=== PATIENT | male | born 1960 | race African-American/Black ===

== ENCOUNTER 2018-10-30 13:17 | Emergency (ER) | payer OTHER ==
[2018-10-30] MEDS ORDERED: NA CHLORIDE 0.9% 1,000 ML ONE ×2 (13:38→14:24)
[2018-10-30] MEDS ORDERED: MORPHINE 4 MG/ML SYR ONE (13:38)
[2018-10-30] MEDS ORDERED: ONDANSETRON 4 MG/2 ML VIAL ONE (13:38)
[2018-10-30] MEDS ORDERED: FENTANYL CITR 100 MCG/2 ML ONE (14:24)
[2018-10-30 14:41] LABS: Absolute Lymphocytes (CBC) 3.5 K/uL (0.7-4.9); Basophils % 0.7 % (0-1.3); Lymphocytes % 30.3 % (15.3-44.8); RBC Red Blood Cell Count 5.11 M/uL (4.33-5.43)
[2018-10-30 14:59] LABS: Protime INR 0.99
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
[2018-10-30 15:19] LABS: ALT/SGPT 40 U/L (12-78); AST/SGOT 32 U/L (15-37); Albumin 4.1 g/dL (3.4-5.0); Alkaline Phosphatase 68 U/L (45-117); BUN Blood Urea Nitrogen 15 mg/dL (7-18); Bicarbonate 23 mmol/L (21-32); Bilirubin Direct 0.2 mg/dL (0-0.2); Bilirubin Total 0.6 mg/dL (0.2-1.0); Glucose Level 172 mg/dL (74-106); Magnesium 1.6 mg/dL (1.8-2.4); NT PRO-BNP 10 pg/mL (<125); Potassium 3.4 mmol/L (3.5-5.1); Protein, Total 7.4 g/dL (6.4-8.2); Sodium Level 143 mmol/L (136-145); Troponin (Emerg Dept Use Only) < 0.02 ng/mL (0.0-0.045)
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
[2018-10-30] MEDS ORDERED: MAGNESIUM SULFATE 1 gm IVPB 1 GM/100 ML BAG IV ONE (16:32)
[2018-10-30] MEDS ORDERED: TETANUS & DIPHTHERIA TOX,ADULT 0.5 ML VIAL ONE (16:32)
[2018-10-30] MEDS ORDERED: LIDOCAINE 1% MPF 30 ML VIAL ONE (17:26)
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
--- NOTE | 2018-10-31 08:54 | EKG ---
Test Date: 2018-10-30 Test Time: 13:54:59 Materials Associate: MEASUREMENT RESULTS: Intervals: Rate: 87 WV: 176 QRSD: 80 QT: 334 QTc: 401 [place]: P: 58 WV: 176 QRS: 48 T: 38 INTERPRETIVE STATEMENTS: Normal sinus rhythm Nonspecific ST abnormality Abnormal ECG No previous ECG available for comparison Electronically Signed On 10-31-18 08:54:08 CDT by Isak Pacheco
== END 2018-10-30 18:58 | disposition home or self-care (01) ==
LOC: ER 13:17
PROC: 0JQ10ZZ Repair Face Subcutaneous Tissue and Fascia, Open Approach (ICD-10-PCS; principal; 2018-10-30)
DX: S01.91XA Laceration without foreign body of unspecified part of head, initial encounter (principal); S01.81XA Laceration without foreign body of other part of head, initial encounter; V89.2XXA Person injured in unspecified motor-vehicle accident, traffic, initial encounter; Y93.89 Activity, other specified; Y92.410 Unspecified street and highway as the place of occurrence of the external cause
CPT/HCPCS: 96365; 96361; 93005; 85025; 80048; 36415; 86900; 83735; 86850; 85610; 86901; 80076; 84484; 83880; 70450; 72125; 71260; 74177; 71045; 72170; 73060; 90471; 90714; 96375; 99285; 12013; Q9967; J3010; J3475; J7030 ×2; J2405

== ENCOUNTER 2023-08-31 02:49 | Inpatient (IN) | payer SELFPAY ==
[2023-08-31] MEDS ORDERED: MORPHINE 4 MG/ML SYR ONE (03:35)
[2023-08-31] MEDS ORDERED: KETOROLAC 30 MG/ML INJ ONE (03:35)
[2023-08-31] MEDS ORDERED: ONDANSETRON 4 MG/2 ML VIAL ONE (03:35)
[2023-08-31] MEDS ORDERED: NA CHLORIDE 0.9% 1,000 ML ONE ×2 (03:35→05:48)
[2023-08-31 03:57] LABS: Absolute Basophils 0.1 K/uL (0-0.5); Absolute Eosinophils 0.1 K/uL (0-0.5); Absolute Monocytes 0.8 K/uL (0.1-1.3); Absolute Neutrophil 5.5 K/uL (1.8-8.0); Basophils % 0.7 % (0-1.3); Eosinophils % 0.9 % (0-4.4); Hematocrit 40.5 % (39.6-49.0); Hemoglobin 13.6 g/dL (13.6-17.9); Lymphocytes % 23.8 % (15.3-44.8); MCH 29.3 pg (27.0-35.0); MCHC 33.6 g/dL (32.0-36.0); MCV 87.1 fL (80-100); MPV 7.3 fL (7.6-11.3); Monocytes % 9.5 % (3.3-12.3); Neutrophils % 65.1 % (41.7-73.7); Nucleated Red Blood Cells % 0.2 % (0-0); Platelets 310 thou/uL (152-406); RBC Red Blood Cell Count 4.65 M/uL (4.33-5.43); Red Cell Distribution Width 13.8 % (12.1-15.2)
[2023-08-31 04:28] LABS: Albumin 3.5 g/dL (3.4-5.0); Albumin/Globulin Ratio 0.8 (1.1-1.8); Anion Gap 8.2 mEq/L (5.0-15.0); Bilirubin Total 0.9 mg/dL (0.2-1.0); Globulin 4.6 g/dL (2.3-3.5); Potassium 4.2 mEq/L (3.5-5.1); Protein, Total 8.1 g/dL (6.4-8.2)
--- NOTE | 2023-08-31 05:25 | EDPHYS ---
Physician Documentation [facility] Name: Po Godwin Age: 62 yrs Sex: Male : 1960 Arrival Date: 08/31/2023 Time: 02:49 Bed 5 Private MD: ED Physician Martin Bone HPI: 08/30 03:51 This 62 yrs old Black Male presents to ER via Ambulatory with complaints of Abdominal rod Pain, Low Back Pain. 03:51 The patient presents with pain that is acute, with no known mechanism of injury. The rod symptoms are located in the left low back and left mid back. The pain does not radiate. The problem was sustained from unknown cause. Modifying factors: The patient symptoms are alleviated by nothing, the patient symptoms are aggravated by coughing. Historical: - Allergies: 03:22 No Known Allergies; lg3 - Home Meds: 03:22 Metformin Oral [Active]; lg3 - PMHx: 03:22 Diabetes - NIDDM; lg3 - PSHx: 03:22 None; lg3 - Immunization history:: Adult Immunizations up to date. - Infectious Disease History:: Denies. - Social history:: Smoking status: Patient denies any tobacco usage or history of. Patient/guardian denies using alcohol, street drugs. - Family history:: not pertinent. ROS: 03:52 Constitutional: Negative for fever, chills, and weight loss, Eyes: Negative for injury, rod pain, redness, and discharge, ENT: Negative for injury, pain, and discharge, Neck: Negative for injury, pain, and swelling, Cardiovascular: Negative for chest pain, palpitations, and edema, Respiratory: Negative for shortness of breath, cough, wheezing, and pleuritic chest pain, Back: Negative for injury and pain, : Negative for injury, bleeding, discharge, and swelling, MS/Extremity: Negative for injury and deformity, Skin: Negative for injury, rash, and discoloration, Neuro: Negative for headache, weakness, numbness, tingling, and seizure, Psych: Negative for depression, anxiety, suicide ideation, homicidal ideation, and hallucinations, Allergy/Immunology: Negative for hives, rash, and allergies, Endocrine: Negative for neck swelling, polydipsia, polyuria, polyphagia, and marked weight changes, Hematologic/Lymphatic: Negative for swollen nodes, abnormal bleeding, and unusual bruising, 03:52 Abdomen/GI: Positive for abdominal pain, nausea and vomiting, of the anterior aspect of left lateral abdomen, posterior aspect of left lateral abdomen, left upper quadrant and left lower quadrant, Exam: 03:52 Constitutional: This is a well developed, well nourished patient who is awake, alert, rod and in no acute distress. Head/Face: Normocephalic, atraumatic. Eyes: Pupils equal round and reactive to light, extra-ocular motions intact. Lids and lashes normal. Conjunctiva and sclera are non-icteric and not injected. Cornea within normal limits. Periorbital areas with no swelling, redness, or edema. ENT: Nares patent. No nasal discharge, no septal abnormalities noted. Tympanic membranes are normal and external auditory canals are clear. Oropharynx with no redness, swelling, or masses, exudates, or evidence of obstruction, uvula midline. Mucous membranes moist. Neck: Trachea midline, no thyromegaly or masses palpated, and no cervical lymphadenopathy. Supple, full range of motion without nuchal rigidity, or vertebral point tenderness. No Meningismus. Chest/axilla: Normal chest wall appearance and motion. Nontender with no deformity. No lesions are appreciated. Cardiovascular: Regular rate and rhythm with a normal S1 and S2. No gallops, murmurs, or rubs. Normal PMI, no JVD. No pulse deficits. Respiratory: Lungs have equal breath sounds bilaterally, clear to auscultation and percussion. No rales, rhonchi or wheezes noted. No increased work of breathing, no retractions or nasal flaring. Back: No spinal tenderness. No costovertebral tenderness. Full range of motion. Male : Normal genitalia with no discharge or lesions. Skin: Warm, dry with normal turgor. Normal color with no rashes, no lesions, and no evidence of cellulitis. MS/ Extremity: Pulses equal, no cyanosis. Neurovascular intact. Full, normal range of motion. Neuro: Awake and alert, GCS 15, oriented to person, place, time, and situation. Cranial nerves II-XII grossly intact. Motor strength 5/5 in all extremities. Sensory grossly intact. Cerebellar exam normal. Normal gait. Psych: Awake, alert, with orientation to person, place and time. Behavior, mood, and affect are within normal limits. 03:52 Abdomen/GI: Inspection: abdomen appears normal, Bowel sounds: active, Palpation: mild abdominal tenderness, moderate abdominal tenderness, in the left upper quadrant and left lower quadrant, Liver: no appreciated palpable abnormalities, Hernia: not appreciated, Vital Signs: 03:20 BP 139 / 83; Pulse 116; Resp 17 S; Temp 98.6(O); Pulse Ox 100% on R/A; Weight 136.08 kg lg3 (R); Height 6 ft. 0 in. (R); 04:58 BP 124 / 69; Pulse 52; Pulse Ox 100% on R/A; tm6 07:43 BP 119 / 76; Pulse 53; Resp 18; Pulse Ox 100% on R/A; ld1 03:20 Body Mass Index 40.69 (136.08 kg, 182.88 cm) lg3 MDM: 02:56 Patient medically screened. rod 03:54 Differential diagnosis: Herniated disc UTI, bowel obstruction, cholecystitis, rod Cholelithiasis, diverticulitis, gastritis, gastroesophageal reflux disease, GI Bleed, Mesenteric ischemia or infarction, non-specific abd pain, pancreatitis, Peptic Ulcer Disease, Perf. Duodenal Ulcer, Perf. Gastric Ulcer, Pyelonephritis, Ureterolithiasis, urinary tract infection. Data reviewed: vital signs, nurses notes, lab test result(s), radiologic studies, CT scan. Consideration of Admission/Observation Escalation of care including admission/observation considered. I considered the following discharge prescriptions or medication management in the emergency department Medications were administered in the Emergency Department. See MAR. Independent interpretation of the following test(s) in the Emergency Department CT Scan: My interpretation is ct c/a/p negative. Test considered but Not performed: EKG: no ekg. Historians other than the Patient: Spouse/Significant Other: well informed. Care significantly affected by the following chronic conditions: Diabetes, Obesity. Counseling: I had a detailed discussion with the patient and/or guardian regarding the historical points, exam findings, and any diagnostic results supporting the discharge/admit diagnosis, lab results, radiology results. 08/30 02:57 Order name: CBC with Diff; Complete Time: 04:39 rod 08/30 02:57 Order name: CMP; Complete Time: 04:39 [facility] 08/30 02:57 Order name: Lipase; Complete Time: 04:39 [facility] 08/30 02:57 Order name: Urinalysis w/ reflexes; Complete Time: 06:11 [facility] 08/30 06:06 Order name: Urinalysis w/ reflexes [facility] 08/30 06:06 Order name: CBC with Automated Diff [facility] 08/30 06:06 Order name: CBC with Automated Diff [facility] 08/30 06:06 Order name: Comprehensive Metabolic Panel [facility] 08/30 06:06 Order name: Comprehensive Metabolic Panel [facility] 08/30 04:40 Order name: CT Chest Abdomen Pelvis W/O Contrast [facility] 08/30 06:07 Order name: CONS Physician Consult [facility] 08/30 02:57 Order name: IV Saline Lock; Complete Time: 03:24 [facility] 08/30 02:57 Order name: Labs collected and sent; Complete Time: 03:24 [facility] Administered Medications: 03:40 Drug: NS 0.9% IV 1000 ml IV at 1 bolus Per protocol; 1000 mL bolus Route: IV; Rate: 1 pc2 bolus; Site: right antecubital; 06:23 Follow up: Response: No adverse reaction; IV Status: Completed infusion; IV Intake: tm6 1000ml 03:41 Drug: Ondansetron IVP 4 mg IVP once; over 2 minutes Route: IVP; Site: right antecubital;pc2 03:42 Drug: TORadol - Ketorolac IVP 15 mg IVP once Route: IVP; Site: right antecubital; pc2 03:43 Drug: morphine IVP or IV 4 mg IVP once over 4 mins Route: IVP; Infused Over: 4 mins; pc2 Site: right antecubital; 06:23 Drug: NS 0.9% IV 1000 ml IV at 1 bolus Per protocol; 1000 mL bolus Route: IV; Rate: 1 tm6 bolus; Site: right antecubital; 07:44 Follow up: IV Status: Completed infusion iw 06:23 Drug: Rocephin IV 1 grams IV at per protocol once; Given slow IV push per pharmacy tm6 instructions Route: IV; Rate: per protocol; Site: right antecubital; 07:44 Follow up: IV Status: Completed infusion iw 06:23 Drug: Flomax PO 0.4 mg PO once Route: PO; tm6 Disposition Summary: 08/31/23 05:24 Hospitalization Ordered Notes: Hospitalization Status: Inpatient Admission rod Provider: Jeison Benedict cha Location: Telemetry/MedSurg (Inpatient) rod Condition: Stable rod Problem: new rod Symptoms: have improved rod Bed/Room Type: Standard [facility] Room Assignment: 206(08/31/23 06:53) [facility] Diagnosis - Hydronephrosis with renal and ureteral calculous obstruction rod - Acute kidney failure, unspecified - ON CHRONIC rod - Type 2 diabetes mellitus with hyperglycemia rod Forms: - Medication Reconciliation Form rod - SBAR form rod - Leadership Thank You Letter rod Signatures: Dispatcher [employer] EDMS Martin Bone MD MD cha Able, Lacie RN RN lg3 Kristyn Azul [facility] David North RN RN tm6 Sandi marmolejo, RN RN pc2 Yolanda Davila RN iw Corrections: (The following items were deleted from the chart) 02:58 02:57 CBC+H.LAB.BRZ ordered. EDMS EDMS 02:58 02:57 COMPREHENSIVE METABOLIC PANEL+C.LAB.BRZ ordered. EDMS EDMS 02:58 02:57 LIPASE+C.LAB.BRZ ordered. EDMS EDMS 02:58 02:57 Urinalysis+U.LAB.BRZ ordered. EDMS EDMS 04:01 02:57 Abdomen Pelvis W Con+CT.RAD.BRZ ordered. EDMS EDMS 04:50 03:51 Chest For PE Angio+CT.RAD.BRZ ordered. EDMS EDMS 04:50 03:51 Abdomen Pelvis W Con+CT.RAD.BRZ ordered. EDMS EDMS 06:53 05:24 rod kmf
--- NOTE | 2023-08-31 05:25 | ER ---
Nurse's Notes [facility] Name: Po Godwin Age: 62 yrs Sex: Male : 1960 Arrival Date: 08/31/2023 Time: 02:49 Bed 5 Private MD: Diagnosis: Hydronephrosis with renal and ureteral calculous obstruction;Acute kidney failure, unspecified-ON CHRONIC;Type 2 diabetes mellitus with hyperglycemia Presentation: 08/30 03:20 Chief complaint: Patient states: left sided abdominal pain radiating to back X1 week lg3 and worsening. Coronavirus screen: Client denies travel out of the [place] in the last 14 days. At this time, the client does not indicate any symptoms associated with coronavirus-19. Ebola Screen: No symptoms or risks identified at this time. Initial Sepsis Screen: Does the patient meet any 2 criteria? No. Patient's initial sepsis screen is negative. Does the patient have a suspected source of infection? No. Patient's initial sepsis screen is negative. Risk Assessment: Do you want to hurt yourself or someone else? Patient reports no desire to harm self or others. Onset of symptoms is unknown. 03:20 Method Of Arrival: Ambulatory lg3 03:20 Acuity: DANIEL 3 lg3 Triage Assessment: 03:22 General: Appears in no apparent distress. uncomfortable, Behavior is calm, cooperative. lg3 Pain: Complains of pain in left upper quadrant Pain radiates to back. EENT: No deficits noted. No signs and/or symptoms were reported regarding the EENT system. Neuro: No deficits noted. Turpin Agitation-Sedation Scale (RASS): 0 - Alert and Calm Level of Consciousness is awake, alert, obeys commands, Oriented to person, place, time, situation. Cardiovascular: No deficits noted. Denies chest pain, shortness of breath, Capillary refill < 3 seconds Clubbing of nail beds is absent JVD is absent Patient's skin is warm and dry. Respiratory: No deficits noted. Airway is patent Respiratory effort is even, unlabored, Respiratory pattern is regular, symmetrical. GI: Abdomen is round non-distended, obese, Reports upper abdominal pain, nausea. : No deficits noted. No signs and/or symptoms were reported regarding the genitourinary system. Derm: No deficits noted. No signs and/or symptoms reported regarding the dermatologic system. Skin is intact, is healthy with good turgor, Skin is dry, Skin is normal, Skin temperature is warm. Musculoskeletal: No deficits noted. No signs and/or symptoms reported regarding the musculoskeletal system. Circulation, motion, and sensation intact. Range of motion: intact in all extremities. Historical: - Allergies: 03:22 No Known Allergies; lg3 - Home Meds: 03:22 Metformin Oral [Active]; lg3 - PMHx: 03:22 Diabetes - NIDDM; lg3 - PSHx: 03:22 None; lg3 - Immunization history:: Adult Immunizations up to date. - Infectious Disease History:: Denies. - Social history:: Smoking status: Patient denies any tobacco usage or history of. Patient/guardian denies using alcohol, street drugs. - Family history:: not pertinent. Screenin:58 [facility] ED Fall Risk Assessment (Adult) History of falling in the last 3 months, pc2 including since admission No falls in past 3 months (0 pts). Abuse screen: Denies threats or abuse. Denies injuries from another. Nutritional screening: No deficits noted. Tuberculosis screening: No symptoms or risk factors identified. Assessment: 03:38 General: Appears in no apparent distress. uncomfortable, well groomed, Behavior is pc2 cooperative, appropriate for age, anxious. Pain: Complains of pain in abdomen and left upper quadrant Pain radiates to back Quality of pain is described as dull, Pain began 2-3 days ago. Neuro: Level of Consciousness is awake, alert, obeys commands, Oriented to person, place, time, situation, Appropriate for age Moves all extremities. Cardiovascular: Patient's skin is warm and dry. Respiratory: Airway is patent Respiratory effort is even, unlabored, Respiratory pattern is regular, symmetrical. GI: Abdomen is non-distended, Bowel sounds present X 4 quads. Abd is soft X 4 quads Reports nausea, vomiting, since [place] after purchasing some "bad Boudin". : No signs and/or symptoms were reported regarding the genitourinary system. EENT: No signs and/or symptoms were reported regarding the EENT system. Musculoskeletal: No signs and/or symptoms reported regarding the musculoskeletal system. 04:59 Reassessment: Patient appears in no apparent distress at this time. tm6 Vital Signs: 03:20 BP 139 / 83; Pulse 116; Resp 17 S; Temp 98.6(O); Pulse Ox 100% on R/A; Weight 136.08 kg lg3 (R); Height 6 ft. 0 in. (R); 04:58 BP 124 / 69; Pulse 52; Pulse Ox 100% on R/A; tm6 07:43 BP 119 / 76; Pulse 53; Resp 18; Pulse Ox 100% on R/A; ld1 03:20 Body Mass Index 40.69 (136.08 kg, 182.88 cm) lg3 ED Course: 02:52 Patient arrived in ED. jj6 02:56 Martin Bone MD is Attending Physician. rod 03:22 Triage completed. lg3 03:22 Arm band placed on right wrist. lg3 03:24 Inserted saline lock: 20 gauge in right antecubital area, using aseptic technique. lg3 Blood collected. 03:24 CBC with Diff Sent. lg3 03:24 CMP Sent. lg3 03:24 Lipase Sent. lg3 03:47 Sandi marmolejo, RN is Primary Nurse. pc2 03:58 Patient has correct armband on for positive identification. Bed in low position. Call pc2 light in reach. Side rails up X2. Provided Education on: POC and timeframe. 04:58 CT Chest Abdomen Pelvis W/O Contrast In Process Unspecified. EDMS 05:23 Jeison Benedict MD is Hospitalizing Provider. rod 07:43 No provider procedures requiring assistance completed. Patient admitted, IV remains in ld1 place. Administered Medications: 03:40 Drug: NS 0.9% IV 1000 ml IV at 1 bolus Per protocol; 1000 mL bolus Route: IV; Rate: 1 pc2 bolus; Site: right antecubital; 06:23 Follow up: Response: No adverse reaction; IV Status: Completed infusion; IV Intake: tm6 1000ml 03:41 Drug: Ondansetron IVP 4 mg IVP once; over 2 minutes Route: IVP; Site: right antecubital;pc2 03:42 Drug: TORadol - Ketorolac IVP 15 mg IVP once Route: IVP; Site: right antecubital; pc2 03:43 Drug: morphine IVP or IV 4 mg IVP once over 4 mins Route: IVP; Infused Over: 4 mins; pc2 Site: right antecubital; 06:23 Drug: NS 0.9% IV 1000 ml IV at 1 bolus Per protocol; 1000 mL bolus Route: IV; Rate: 1 tm6 bolus; Site: right antecubital; 07:44 Follow up: IV Status: Completed infusion iw 06:23 Drug: Rocephin IV 1 grams IV at per protocol once; Given slow IV push per pharmacy tm6 instructions Route: IV; Rate: per protocol; Site: right antecubital; 07:44 Follow up: IV Status: Completed infusion iw 06:23 Drug: Flomax PO 0.4 mg PO once Route: PO; tm6 Medication: 03:59 VIS not applicable for this client. pc2 Intake: 06:23 IV: 1000ml; Total: 1000ml. tm6 Outcome: 05:24 Decision to Hospitalize by Provider. rdo 07:43 Admitted to Med/surg accompanied by tech, via wheelchair, iw 07:43 Condition: good 07:43 Discharge instructions given to patient, family, Instructed on the need for admit, Demonstrated understanding of instructions, 07:45 Patient left the ED. iw Signatures: Dispatcher [employer] EDMS Martin Bone MD MD cha Williams, Irene, RN RN iw Andreina Milan RN RN lg3 Kimberlyn Hassan RN RN ld1 Camila Cortes Tawney RN RN tm6 Sandi marmolejo, RN RN pc2
[2023-08-31 05:28] LABS: Specific Gravity 1.027 (1.005-1.030); Sqamous Epithelial <5 /HPF (None Seen); Urine Bacteria None Seen /HPF (<20); Urine Bilirubin NEGATIVE (Negative); Urine Blood Negative (Negative); Urine Clarity Clear (Clear); Urine Color Yellow (Yellow); Urine Culture Reflex Order NOT NEEDED; Urine Glucose NEGATIVE (Negative); Urine Ketones NEGATIVE (Negative); Urine Microscopic Reflex YN ORDER UMIC; Urine Mucus Slight /HPF (None Seen); Urine Nitrite NEGATIVE (Negative); Urine Protein TRACE (Negative); Urine RBC <5 /HPF (None Seen); Urine Urobilinogen Normal (Normal); Urine WBC <5 /HPF (<5); Urine pH 6.5 (5.0-7.0)
[2023-08-31] MEDS ORDERED: CEFTRIAXONE 1000 MG/VIAL ONE (05:47)
[2023-08-31] MEDS ORDERED: TAMSULOSIN 0.4 MG SR CAP ONE (05:48)
[2023-08-31] MEDS ORDERED: ONDANSETRON 4 MG/2 ML VIAL IV PRN (06:02)
[2023-08-31] MEDS ORDERED: MORPHINE 4 MG/ML SYR IV PRN (06:04)
[2023-08-31 08:02] VITALS: O2SAT 100
[2023-08-31] MEDS: ENOXAPARIN 40 MG/0.4 ML SQ SCH (08:42)
[2023-08-31] MEDS: NA CHLORIDE 0.9% 1,000 ML IV SCH (08:42)
[2023-08-31 08:55] VITALS: BMI 39.0
--- NOTE | 2023-08-31 10:33 | RAD REPORT ---
EXAM DESCRIPTION: CT Chest, Abdomen and Pelvis Without Intravenous Contrast CLINICAL HISTORY: The patient is 62 years old and is Male; Abdominal distention;Chest pain TECHNIQUE: Axial computed tomography images of the chest, abdomen and pelvis without intravenous con trast. Sagittal and coronal reformatted images were created and reviewed. This CT exam was perfor med using one or more of the following dose reduction techniques: automated exposure control, adjus tment of the mA and/or kV according to patient size, and/or use of iterative reconstruction technique . COMPARISON: No relevant prior studies available. FINDINGS: CHEST: Lungs: Unremarkable. No mass. No consolidation. Pleural space: Unremarkable. No significant effusion. No pneumothorax. Heart: Unremarkable. No cardiomegaly. No significant pericardial effusion. No significant c oronary artery calcifications. ABDOMEN: Liver: Unremarkable. Gallbladder and bile ducts: Unremarkable. No calcified stones. No ductal dilation. Pancreas: Unremarkable. No ductal dilation. Spleen: Unremarkable. No splenomegaly. Adrenals: Unremarkable. No mass. Kidneys and ureters: 6 mm stone in the upper left ureter. Mild left hydroureteronephrosis and per inephric/periureteral stranding. Stomach and bowel: Scattered colonic diverticula. No obstruction. No mucosal thickening. PELVIS: Appendix: The appendix is normal. Bladder: Unremarkable. No stones. Reproductive: Unremarkable as visualized. CHEST, ABDOMEN and PELVIS: Intraperitoneal space: Unremarkable. No significant fluid collection. No free air. Bones/joints: 5 mm of anterolisthesis of L3 on L4 with bilateral pars defects. No acute fracture. No dislocation. Soft tissues: Unremarkable. Vasculature: Unremarkable. No aortic aneurysm. Lymph nodes: Unremarkable. No enlarged lymph nodes. IMPRESSION: 6 mm stone in the upper left ureter. Mild left hydroureteronephrosis and perinephric/per iureteral stranding. Electronically signed by: Po Glass MD 08/31/2023 06:31 AM CDT 8 Due to temporary technical issues with the PACS/Fluency reporting system, reports are being signed by the in house radiologist without review as a courtesy to ensure prompt reporting. The interpreting r adiologist is fully responsible for the content of the report.
--- NOTE | 2023-08-31 17:24 | P.HP ---
Certification for Inpatient Patient admitted to: Inpatient With expected LOS: >2 Midnights Practitioner: I am a practitioner with admitting privileges, knowledge of patient current condition, hospital course, and medical plan of care. Services: Services provided to patient in accordance with Admission requirements found in Title 42 Section 412.3 of the Code of Federal Regulations Patient History Date of Service: 08/31/23 Reason for admission: Back pain History of Present Illness: 62-year-old gentleman with a history of diabetes presented to the emergency department with a complaint of left-sided abdominal pain of onset 1 week ago, which became progressively worse and more frequent. Patient described colicky abdominal pain radiating to the back, no known relieving or aggravating factors. He denies any fever or chills. He denies any dysuria or diarrhea or constipation or nausea or vomiting. Patient was evaluated in the emergency department. CT abdomen and pelvis done report 6 mm left ureteral stone with associated mild left hydronephrosis. UA shows no evidence of UTI. Blood work showed elevated creatinine up to 2.14, last serum creatinine in 2019 was 1.17. Patient was hospitalized for further management. Allergies No Known Drug Allergies Allergy (Verified 08/31/23 16:37) Unknown Home Medications: Metformin HCl [Glucophage*] 500 mg PO DAILY 08/31/23 - Past Medical/Surgical History Has patient received pneumonia vaccine in the past: Yes Diabetic: Yes -: Type 2 diabetes -: None - Family History Family History: Reviewed- Non-Contributory - Social History Smoking Status: Never smoker Alcohol use: No CD- Drugs: No Caffeine use: Yes Place of Residence: Home Review of Systems Other: Except as documented, all other systems reviewed and negative. Physical Examination - Vital Signs Temperature: 98.4 F Blood Pressure: 117/67 Pulse: 51 Respirations: 15 Pulse Ox (%): 99 - Physical Exam General: Alert, In no apparent distress, Oriented x3 HEENT: Atraumatic, Normocephalic, PERRLA, Mucous membr. moist/pink, Sclerae nonicteric Neck: Supple, JVD not distended Respiratory: Clear to auscultation bilaterally, Normal air movement Cardiovascular: No edema, Regular rate/rhythm, Normal S1 S2 Capillary refill: <2 Seconds Gastrointestinal: Normal bowel sounds, Soft and benign, Non-distended, No tenderness Musculoskeletal: No swelling, No tenderness Integumentary: No rashes, No cyanosis Neurological: Normal speech, Normal strength at 5/5 x4 extr, Cranial nerves 3-12 intact Lymphatics: No axilla or inguinal lymphadenopathy - Studies Laboratory Data (last 24 hrs) 08/31/23 08/31/23 03:32 03:32 WBC 8.40 Hgb 13.6 Hct 40.5 Plt Count 310 Sodium 139 Potassium 4.2 BUN 15 Creatinine 2.14 H Glucose 125 H Total Bilirubin 0.9 AST 11 L ALT 35 Alkaline Phosphatase 68 Lipase 22 Assessment and Plan - Problems (Diagnosis) (1) Ureteral calculus, left Current Visit: Yes Status: Acute (2) Hydronephrosis, left Current Visit: Yes Status: Acute (3) Type II diabetes mellitus Current Visit: Yes Status: Acute (4) Acute kidney injury Current Visit: Yes Status: Acute - Plan Left ureteral calculus. Left hydronephrosis EVARISTO Newly diagnosed ureteric stone. Patient admitted to the medical floor IV hydration Analgesics as needed Started tamsulosin Antispasmodics as needed Urology consulted-Dr. Caba informed who will evaluate patient for possible intervention tomorrow. Serum creatinine is elevated, unknown recent baseline. Monitor renal function. DM type II Patient with blood sugar readings within range. Hold metformin Insulin sliding scale for hyperglycemia. DVT prophylaxis: Heparin SQ - Advance Directives Does patient have a Living Will: No Does patient have a Durable POA for Healthcare: No
[2023-08-31] MEDS: HEPARIN 5000 UNIT/ML 1 ML VIAL SQ SCH (18:02)
[2023-09-01 03:52] LABS: Absolute Basophils 0.1 K/uL (0-0.5); Absolute Eosinophils 0.1 K/uL (0-0.5); Absolute Lymphocytes (CBC) 1.9 K/uL (0.7-4.9); Absolute Monocytes 0.6 K/uL (0.1-1.3); Absolute Neutrophil 4.1 K/uL (1.8-8.0); Basophils % 1.3 % (0-1.3); Eosinophils % 2.1 % (0-4.4); Hematocrit 33.6 % (39.6-49.0); Hemoglobin 11.2 g/dL (13.6-17.9); Lymphocytes % 27.7 % (15.3-44.8); MCH 29.3 pg (27.0-35.0); MCHC 33.4 g/dL (32.0-36.0); MCV 87.6 fL (80-100); MPV 7.5 fL (7.6-11.3); Monocytes % 8.9 % (3.3-12.3); Platelets 280 thou/uL (152-406); RBC Red Blood Cell Count 3.83 M/uL (4.33-5.43)
[2023-09-01 04:16] LABS: ALT/SGPT 22 U/L (16-61); Albumin 2.8 g/dL (3.4-5.0); Albumin/Globulin Ratio 0.8 (1.1-1.8); Alkaline Phosphatase 54 U/L (45-117); Anion Gap 5.6 mEq/L (5.0-15.0); BUN Blood Urea Nitrogen 20 mg/dL (7-18); Bicarbonate 30 mEq/L (21-32); Bilirubin Total 0.4 mg/dL (0.2-1.0); Globulin 3.7 g/dL (2.3-3.5); Glomerular Filtration Rate 36 ml/min (=/>90); Glucose Level 123 mg/dL (74-106); Potassium 4.6 mEq/L (3.5-5.1); Protein, Total 6.5 g/dL (6.4-8.2); Sodium Level 141 mEq/L (136-145)
[2023-09-01 04:17] LABS: AST/SGOT < 10 U/L (15-37)
[2023-09-01 06:02] LABS: Specific Gravity 1.016 (1.005-1.030); Sqamous Epithelial None Seen /HPF (None Seen); Urine Bacteria None Seen /HPF (<20); Urine Bilirubin NEGATIVE (Negative); Urine Blood Negative (Negative); Urine Clarity Clear (Clear); Urine Color Light-Yellow (Yellow); Urine Culture Reflex Order NOT NEEDED; Urine Glucose NEGATIVE (Negative); Urine Ketones NEGATIVE (Negative); Urine Microscopic Reflex YN ORDER UMIC; Urine Mucus Slight /HPF (None Seen); Urine Nitrite NEGATIVE (Negative); Urine Protein NEGATIVE (Negative); Urine RBC None Seen /HPF (None Seen); Urine Urobilinogen Normal (Normal); Urine WBC None Seen /HPF (<5); Urine pH 6.5 (5.0-7.0)
--- NOTE | 2023-09-01 09:49 | P.PN ---
Date of Service: 09/01/23 Subjective: Denies any pains today. Left-sided pain resolved yesterday evening. Able to urinate with some relief overnight. No pain when urinating afebrile ROS: 10 point ROS as noted above, otherwise negative Physical Exam: GEN: Alert, oriented, NAD HEENT: Normal conjunctiva, sclera anicteric, CV: Regular rate and rhythm, no edema Pulm: Nonlabored respirations on room air, clear bilaterally ABD: soft, no tenderness, nondistended Neuro: Normal speech, normal affect Problem List: Left ureteral calculus with mild left-sided hydronephrosis EVARISTO NIDDM2 Left ureteral calculus with mild left-sided hydronephrosis Reports worsening left-sided colicky abdominal pain that radiates to back for ~1 week. No fever/chills/dysuria CT chest/abdomen/pelvis (08/30): 6mm left upper ureter stone with mild left hydroureteronephrosis and perinephric/periureteral stranding Urology, Dr. Caba consulted - to eval for possible intervention today NPO for now until evaluated by Urology Urinalysis unremarkable Pain control strain urine EVARISTO continue to monitor renal function continue IV fluids NIDDM2 accu-checks, SSI confirm home meds hold metformin for now VTE: Hold heparin given possible surgery Code: Full Dispo: Home Pending urology recs / possible intervention
[2023-09-01] MEDS: ACETAMINOPHEN 325 MG TABLET PO PRN (09:57)
[2023-09-01] MEDS ORDERED: LIDOCAINE 1% MPF 5 ML VIAL ONE (12:44)
[2023-09-01] MEDS ORDERED: MIDAZOLAM HCL 2 MG/2 ML INJ ONE (12:44)
[2023-09-01] MEDS ORDERED: propofoL 200 MG/20 ML VIAL IV ONE (12:44)
[2023-09-01] MEDS ORDERED: FENTANYL CITR 100 MCG/2 ML ONE ×2 (12:44→13:40)
[2023-09-01] MEDS: CEFAZOLIN SODIUM 2 GM/VIAL ONE (13:15)
--- NOTE | 2023-09-01 13:24 | P.CNS ---
Date of Consult: 09/01/23 Reason for Consult: Left ureterolithiasis Requesting Physician: Abhi Caba Chief Complaint: Back pain History of Present Illness: 62-year-old gentleman with DM 2 presented via the emergency department with left-sided upper quadrant abdominal pain that started about a week prior. The pain progressively worsened, and on Thursday, he had an episode of nausea and vomiting, which he associated with having eaten some boudin. He denied any fevers, chills, dysuria or gross hematuria otherwise. He was admitted and has been managed on ceftriaxone and IV fluids. No known drug allergies Past medical history: As above Past surgical history: None Family history: He thinks his father may have had prostate cancer Social history: Remote history of smoking less than 1 year over 30 years ago, about 1/4 pack/week Examination: Patient well-appearing and in no acute distress Alert, awake, oriented x 3 No dyspnea or sign of respiratory distress Pulse 2+ radial and regular Lying in hospital stretcher comfortable 09/01/2023 WBC 6.9, hemoglobin 11.2, platelets 280, creatinine 2.07 with EGFR 36 (up from baseline of 1.2 in 2019), BUN 20 08/31/2023 UA micro negative nitrite/leukocyte esterase, <5 RBCs/WBCs per hpf 08/31/2023 CT chest abdomen and pelvis without contrast (my review of the imaging): 6 mm left proximal ureteral calculus with mild left hydronephrosis. Radiologist review: Perinephric and periureteral stranding Assessment and recommendation: 62-year-old gentleman with DM 2 and possible family history of prostate cancer in his father, first-time stone former with EVARISTO associated with 6 mm left proximal ureterolithiasis, left renal colic and left hydronephrosis. -I counseled the patient and his , who is a nurse at this hospital, that the kidney stone is causing acute kidney injury which can result in ATN, which I e xplained was the potential for essentially of portions of the kidney. I explained the need to relieve the obstruction to restore baseline kidney function. I also explained the potential for ureteral stricture disease associated with stone passage events and the importance of increasing the volume of fluid intake to decrease future risk of stone formation. -At minimum, I explained we would perform cystoscopy with left retrograde pyelography and stent placement to relieve the obstruction. I explained about 5% chance risk of need for percutaneous nephrostomy tube placement if the stone is densely impacted. We also discussed the potential for stent discomfort in detail. -I also suggested that since we had availability of the laser at this time, if no signs of infection upon endoscopy, and if no significant ureteral spasm preventing access into his upper ureter, we would go ahead and attempt ureteroscopy with laser lithotripsy. I explained the risks of that to include urethral stricture, infection, bleeding, ureteral injury/avulsion, and ureteral stricture as described above. -I explained that the stent was a foreign body that must be removed to prevent complications of encrustation and infection. -Given his family history of prostate cancer, he would benefit from prostate cancer screening including a SRI, and his PSA has likely been obtained by his PCP, Dr. Lewis Allergies No Known Drug Allergies Allergy (Verified 08/31/23 16:37) Unknown Home medications list reviewed: Yes Home Medications: Metformin HCl [Glucophage*] 500 mg PO DAILY 08/31/23 - Past Medical/Surgical History Diabetic: Yes -: Type 2 diabetes -: None - Social History Alcohol use: No CD- Drugs: No Caffeine use: Yes Place of Residence: Home Physical Examination Temp Pulse Resp BP Pulse Ox 98.0 F 54 20 121/67 100 09/01/23 12:00 09/01/23 12:00 09/01/23 12:00 09/01/23 12:00 09/01/23 12:00 - Problems (1) Renal colic on left side Current Visit: Yes Status: Acute (2) Acute kidney injury Current Visit: Yes Status: Acute (3) Hydronephrosis, left Current Visit: Yes Status: Acute (4) Ureteral calculus, left Current Visit: Yes Status: Acute Critical Care: No Time Spent Managing Pts care (In Minutes): 30
[2023-09-01] MEDS ORDERED: EPHEDRINE SULF 50 MG/ML VIAL ONE (13:38)
--- NOTE | 2023-09-01 14:10 | P.OP ---
Date of Service: 09/01/23 Preoperative diagnoses: Left renal colic Left ureterolithiasis Left hydronephrosis Acute kidney injury Postoperative diagnoses: Left renal colic Left ureterolithiasis Left hydronephrosis Acute kidney injury Principal procedures: Cystoscopy Left retrograde pyelography Left semirigid ureteroscopy Left 6 x 28 cm JJ ureteral stent placement Indication for procedures: 62-year-old gentleman with DM 2 and possible family history of prostate cancer in his father, first-time stone former with EVARISTO associated with 6 mm left proximal ureterolithiasis, left renal colic and left hydronephrosis. Procedure note: The patient was consented in the preoperative holding area before being transferred to the operative suite where general anesthesia was induced. He was given Ancef 2 g IV antimicrobial prophylaxis, and pneumoboots were provided for DVT prophylaxis. He was placed in the lithotomy position, padded and secured to the table appropriately. His genitalia was prepped with Hibiclens and he was draped in standard fashion. The case was begun using a 22 Burkinan rigid cystoscope to traverse the urethra and into the bladder with relative ease. The bladder was decompressed of fluid and urine and surveyed in its entirety. No papillary mucosal lesions, foreign bodies or stones were noted throughout. The ureteral orifices were orthotopic in location, and I cannulated the left ureteral orifice using the tip of a 5 Burkinan ureteral access catheter. Left retrograde pyelography: Using a 70: 30 mixture of Omnipaque and saline, contrast was injected via the lumen of the 5 Burkinan ureteral access catheter and did propagate up the distal into the mid ureter where it reached a point of transition around a radiopaque calculus visible there before entering a more dilated segment of mid and proximal ureter and ultimately into a mildly hydronephrotic renal pelvis. I thus passed a sensor wire via the 5 Burkinan ureteral access catheter beyond the point of obstruction successfully into the upper pole calyx of the left kidney. I then utilized a dual-lumen catheter to pass a second wire, Bentson guidewire, into the renal pelvis successfully. I followed this, using an 8/10 dilator to dilate the ureteral orifice and distal ureter before ultimately performing semirigid ureteroscopy passed via direct visualization into the ureteral orifice and up the distal into the mid ureter. Once I passed over the iliac vessels, significant ureteral spasm was encountered. I utilized a Bentson guidewire via the ureteroscope to attempt to navigate over the wire and continue to progress up the ureter with a slight degree of success, ultimately getting the ureteroscope into the mid proximal ureter, but at this point, there was so much spasm that further attempts to advance the ureteroscope required too much pressure and around the risk of injury. As a result, I retracted the semirigid ureteroscope surveying the ureter on the way out, and no injury was noted. I thus remove the ureteroscope and backloaded the cystoscope over the indwelling Sensor safety wire. I then passed a 6 Burkinan by 28 cm double-J ureteral stent over that wire and successfully coiled it within the upper pole calyx of the left kidney with an additional coil formed cystoscopically in his bladder. I then decompressed the patient's bladder of fluid and urine and remove the cystoscope. He was then taken out of the lithotomy position, awakened from general anesthesia, transferred to a stretcher, and then transferred to the recovery room in good condition. Complications: None Discharge disposition: He should follow-up in the urology clinic to discuss the next step in management required -left-sided ureteroscopy with laser lithotripsy and stent exchange. This may be scheduled accordingly, and the patient should see me in preoperative evaluation in the office to discuss the procedure in detail. Findings and Operative Technique
--- NOTE | 2023-09-01 14:12 | RAD REPORT ---
EXAM DESCRIPTION: RAD - Urethrocystogrphy Retrograde - 09/01/2023 2:01 pm CLINICAL HISTORY: CYSTO COMPARISON: Pelvis dated 10/30/2018 FINDINGS: Total fluoro time: 0.1 minutes
[2023-09-02 03:33] LABS: Absolute Basophils 0.1 K/uL (0-0.5); Absolute Eosinophils 0.2 K/uL (0-0.5); Absolute Lymphocytes (CBC) 2.1 K/uL (0.7-4.9); Absolute Monocytes 0.4 K/uL (0.1-1.3); Absolute Neutrophil 2.9 K/uL (1.8-8.0); Basophils % 1.2 % (0-1.3); Hematocrit 34.3 % (39.6-49.0); Hemoglobin 11.4 g/dL (13.6-17.9); MCH 29.2 pg (27.0-35.0); MCHC 33.3 g/dL (32.0-36.0); MCV 87.7 fL (80-100); MPV 7.8 fL (7.6-11.3); Monocytes % 7.4 % (3.3-12.3); Neutrophils % 51.4 % (41.7-73.7); Platelets 280 thou/uL (152-406); RBC Red Blood Cell Count 3.91 M/uL (4.33-5.43); Red Cell Distribution Width 13.8 % (12.1-15.2)
[2023-09-02 04:37] LABS: Band Neutrophils 2 % (0-1); Blood Morphology Comment NOT SEEN (NOT SEEN); Differential Total Cells Count 100; Eosinophils 6 % (0-3); Lymphocytes 30 % (15-42); Monocytes 6 % (0-10); Platelet Estimate ADEQ; Reactive Lymphocytes 2 %; Segmented Neutrophils 54 % (40-80)
--- NOTE | 2023-09-02 08:47 | P.DS ---
Admission Date: 08/31/23 Discharge Date: 09/02/23 Disposition: ROUTINE DISCHARGE Discharge Condition: GOOD Reason for Admission: Back pain Consultations: Urology - Dr. Caba Brief History of Present Illness: 62yo M, PMH: NIDDM2 Patient presented to the emergency department with a complaint of left-sided abdominal pain of onset 1 week ago, which became progressively worse and more frequent. Patient described colicky abdominal pain radiating to the back, no known relieving or aggravating factors. He denies any fever or chills. He denies any dysuria or diarrhea or constipation or nausea or vomiting. Patient was evaluated in the emergency department. CT abdomen and pelvis done report 6 mm left ureteral stone with associated mild left hydronephrosis. UA shows no evidence of UTI. Blood work showed elevated creatinine up to 2.14, last serum creatinine in 2019 was 1.17. Patient was hospitalized for further management. Hospital Course: Problem List: Left ureteral calculus, s/p cystoscopy with left retrograde pyelography and left ureteral stent placement (08/31) EVARISTO, improved NIDDM2 Physician discharge instructions: Patient presented to the ED with left sided abdominal pain and was found to have a 6mm left upper ureteral calculus, seen on CT imaging. Patient was evaluated by Dr. Caba, Urology, and was taken to OR for cystoscopy with left retrograde pyelography and had left ureteral stent placed on 08/31. Patient is to follow up with Dr. Caba as outpatient at urology clinic within the next few weeks for further management as discussed below. Discussed with Dr. Caba who recommended starting flomax to assist with bladder spasms. Instructions Per Dr. Caba You have a left ureteral stent that has been placed. Please note: This is a foreign body, which must be removed within 6 months maximum to prevent complications like it being encrusted with stone material or the source of chronic infection. Please ensure to arrange follow-up with me, Dr. Caba, in my office; so that we might discuss the next steps in management of your left ureteral stone, which is still present in your system. Should you have significant bothersome symptoms associated with the stent, urinary frequency/urgency or significant pain with voiding, please notify me, and I will consider a prescription for oxybutynin/Ditropan XL, which should help with those symptoms. Side effects of the oxybutynin/Ditropan includes dry mouth, dry eyes, and constipation. Notify me if you develop any fever (temperature greater than 100.4 Fahrenheit), intractable nausea or vomiting, increasing pain not controlled by pain medications, or other unusual signs or symptoms. It is common to see some blood in the urine following your procedure. It will be light pink/cranberry colored initially, and then it will become dark or tea colored, when the blood oxidized is in the urine, before it finally clears up. It is only a concern if you note bright red and thick/nontranslucent (not see-through) blood in the urine that appears like tomato juice. Notify me if you have any difficulty urinating, or if you feel the need to push or strain to urinate, as this may be a problem. You may purchase [id number] Azo (Pyridium) if you have burning with urination. Please note, it will turn your urine bright orange. All the best WBR Medications: Flomax 0.4 mg at bedtime Tylenol #3 15 pills as needed for breakthrough pain If not needing tylenol #3, you may take plain over the counter Tylenol (up to 1000 mg every 6 hours maximum) and alternate this every 4 hours with Motrin/ibuprofen (up to 800 mg every 8 hours maximum) for your pain. Please take note and keep the total 24-hour daily dose of Tylenol/acetaminophen less than 4000 mg / 4 g from all sources. Follow up: PCP 3-[address] Caba within 2-4 weeks Please call to schedule / confirm appointments Please contact Dr. Caba office to arrange follow-up @ [phone]. Physical Exam: GEN: Alert, oriented, NAD HEENT: Normal conjunctiva, sclera anicteric, CV: Regular rate and rhythm, no edema Pulm: Nonlabored respirations on room air, clear bilaterally ABD: soft, no tenderness, nondistended Neuro: Normal speech, normal affect Vital Signs/Physical Exam: Temp Pulse Resp BP Pulse Ox 97.7 F 51 16 117/71 99 09/02/23 08:00 09/02/23 08:00 09/02/23 08:00 09/02/23 08:00 09/02/23 08:00 Laboratory Data at Discharge: WBC 5.70 thou/uL (4.3-10.9) 09/02/23 03:10 Hgb 11.4 g/dL (13.6-17.9) L 09/02/23 03:10 Hct 34.3 % (39.6-49.0) L 09/02/23 03:10 Plt Count 280 thou/uL (152-406) 09/02/23 03:10 Sodium 141 mEq/L (136-145) 09/02/23 03:10 Potassium 4.0 mEq/L (3.5-5.1) D 09/02/23 03:10 BUN 22 mg/dL (7-18) H 09/02/23 03:10 Creatinine 1.53 mg/dL (0.70-1.30) H 09/02/23 03:10 Glucose 131 mg/dL (74-106) H 09/02/23 03:10 Magnesium 2.0 mg/dL (1.6-2.4) 09/02/23 03:10 Total Bilirubin 0.4 mg/dL (0.2-1.0) 09/01/23 03:19 AST < 10 U/L (15-37) L 09/01/23 03:19 ALT 22 U/L (16-61) 09/01/23 03:19 Alkaline Phosphatase 54 U/L (45-117) D 09/01/23 03:19 Lipase 22 U/L (13-75) 08/31/23 03:32 Home Medications: Metformin HCl [Glucophage*] 500 mg PO DAILY 08/31/23 Codeine/APAP [Tylenol W/Codeine #3 tab] 1 tab PO Q8HP PRN #15 tab 09/02/23 Tamsulosin [Flomax] 0.4 mg PO BEDTIME 21 Days #21 cap 09/02/23 New Medications: Codeine/APAP [Tylenol W/Codeine #3 tab] 1 tab PO Q8HP PRN #15 tab PRN Reason: Pain Tamsulosin [Flomax] 0.4 mg PO BEDTIME 21 Days #21 cap Physician Discharge Instructions: Physician discharge instructions: Patient presented to the ED with left sided abdominal pain and was found to have a 6mm left upper ureteral calculus, seen on CT imaging. Patient was evaluated by Dr. Caba, Urology, and was taken to OR for cystoscopy with left retrograde pyelography and had left ureteral stent placed on 08/31. Patient is to follow up with Dr. Caba as outpatient at urology clinic within the next few weeks for further management as discussed below. Discussed with Dr. Caba who recommended starting flomax to assist with bladder spasms. Instructions Per Dr. Caba You have a left ureteral stent that has been placed. Please note: This is a foreign body, which must be removed within 6 months maximum to prevent complications like it being encrusted with stone material or the source of chronic infection. Please ensure to arrange follow-up with me, Dr. Caba, in my office; so that we might discuss the next steps in management of your left ureteral stone, which is still present in your system. Should you have significant bothersome symptoms associated with the stent, urinary frequency/urgency or significant pain with voiding, please notify me, and I will consider a prescription for oxybutynin/Ditropan XL, which should help with those symptoms. Side effects of the oxybutynin/Ditropan includes dry mouth, dry eyes, and constipation. Notify me if you develop any fever (temperature greater than 100.4 Fahrenheit), intractable nausea or vomiting, increasing pain not controlled by pain medications, or other unusual signs or symptoms. It is common to see some blood in the urine following your procedure. It will be light pink/cranberry colored initially, and then it will become dark or tea colored, when the blood oxidized is in the urine, before it finally clears up. It is only a concern if you note bright red and thick/nontranslucent (not see-through) blood in the urine that appears like tomato juice. Notify me if you have any difficulty urinating, or if you feel the need to push or strain to urinate, as this may be a problem. You may purchase [id number] Azo (Pyridium) if you have burning with urination. Please note, it will turn your urine bright orange. All the best WBR Medications: Flomax 0.4 mg at bedtime Tylenol #3 15 pills as needed for breakthrough pain If not needing tylenol #3, you may take plain over the counter Tylenol (up to 1000 mg every 6 hours maximum) and alternate this every 4 hours with Motrin/ibuprofen (up to 800 mg every 8 hours maximum) for your pain. Please take note and keep the total 24-hour daily dose of Tylenol/acetaminophen less than 4000 mg / 4 g from all sources. Follow up: PCP 3-[address] Caba within 2-4 weeks Please call to schedule / confirm appointments Please contact Dr. Caba office to arrange follow-up @ [phone]. Diet: Low sodium Activity: Ad mateo Followup: Divya Taylor DO, DO [Primary Care Provider] - Abhi Caba [ACTIVE - CAN ADMIT] - Time spent managing pt's care (in minutes): 45
[2023-09-02 08:48] VITALS: BP 117/71; TEMP 97.7
== END 2023-09-02 10:09 | disposition home or self-care (01) | DRG 661 ==
LOC: ER 02:49 → ERHOLD 06:02 → 2ND 07:38
PROVIDERS: ADMIT Family Medicine; ATTEND Hospitalist
PROC: BT1F1ZZ Fluoroscopy of Left Kidney, Ureter and Bladder using Low Osmolar Contrast (ICD-10-PCS; 2023-09-01)
PROC: 0T778DZ Dilation of Left Ureter with Intraluminal Device, Via Natural or Artificial Opening Endoscopic (ICD-10-PCS; principal; 2023-09-01 13:15)
DX: N13.2 Hydronephrosis with renal and ureteral calculous obstruction (principal); N17.9 Acute kidney failure, unspecified; E11.65 Type 2 diabetes mellitus with hyperglycemia; Z79.84 Long term (current) use of oral hypoglycemic drugs
CPT/HCPCS: 36415; 51610; 71250; 74176; 74450; 80048; 80053; 81001; 82947; 83690; 83735; 85025; 96361; 96365; 96375; 99285; J0696; J1644; J1650; J2001; J2250; J2405; J2704; J3010; J7030

== ENCOUNTER 2024-02-16 06:10 | Day surgery (SDC) | payer BC, SELFPAY ==
[2024-02-10 11:38] LABS: Absolute Basophils 0.1 K/uL (0-0.5); Absolute Eosinophils 0.2 K/uL (0-0.5); Absolute Monocytes 0.4 K/uL (0.1-1.3); Absolute Neutrophil 2.9 K/uL (1.8-8.0); Eosinophils % 3.3 % (0-4.4); Hematocrit 38.8 % (39.6-49.0); Hemoglobin 12.5 g/dL (13.6-17.9); MCH 28.9 pg (27.0-35.0); MCHC 32.3 g/dL (32.0-36.0); MCV 89.4 fL (80-100); MPV 8.2 fL (7.6-11.3); Monocytes % 7.8 % (3.3-12.3); Neutrophils % 51.9 % (41.7-73.7); Platelets 223 thou/uL (152-406); RBC Red Blood Cell Count 4.34 M/uL (4.33-5.43); Red Cell Distribution Width 14.2 % (12.1-15.2)
[2024-02-10 11:44] LABS: PT Prothrombin Time 11.2 SECONDS (9.4-12.5)
[2024-02-10 11:51] LABS: Anion Gap 10.1 mEq/L (5.0-15.0); Potassium 3.1 mEq/L (3.5-5.1)
--- NOTE | 2024-02-10 13:01 | RAD REPORT ---
EXAMINATION: TWO VIEW CHEST XR CLINICAL INDICATION: Male, 63 years old. BR MAIN Pre-op pending surgery. Hypertension TECHNIQUE: 2 view radiographs of the chest were performed. COMPARISON: 10/30/2018 FINDINGS: The lungs are well inflated and clear. No pneumothorax or sizable effusion. The heart is normal in si ze. Mediastinal contours are unremarkable. IMPRESSION: No acute or significant abnormalities.
--- NOTE | 2024-02-15 10:23 | EKG ---
Test Date: 2024-02-10 Test Time: 11:46:13 Assistant Research Scientist: BRIGID MEASUREMENT RESULTS: Intervals: Rate: 50 AK: 200 QRSD: 92 QT: 380 QTc: 346 [place]: P: 63 AK: 200 QRS: 61 T: 60 INTERPRETIVE STATEMENTS: Sinus bradycardia Otherwise normal ECG Compared to ECG 10/30/2018 13:54:59 Sinus rhythm no longer present ST (T wave) deviation no longer present Electronically Signed On 02-15-24 10:22:25 CONTROL OFFICER by Geovanny Galarza
[2024-02-16] MEDS ORDERED: Ringers Lactate 0 ML IV ONE (06:34)
[2024-02-16] MEDS: NA CHLORIDE 0.9% 1,000 ML ONE (06:45)
[2024-02-16 07:03] VITALS: O2SAT 100
[2024-02-16] MEDS ORDERED: MIDAZOLAM HCL 2 MG/2 ML INJ ONE (07:09)
[2024-02-16] MEDS ORDERED: propofoL 200 MG/20 ML VIAL IV ONE (07:09)
[2024-02-16] MEDS ORDERED: dexAMETHasone 10 MG/ML VIAL ONE (07:09)
[2024-02-16] MEDS ORDERED: FENTANYL CITR 100 MCG/2 ML ONE (07:09)
[2024-02-16] MEDS ORDERED: LIDOCAINE 1% MPF 5 ML VIAL ONE (07:09)
[2024-02-16] MEDS ORDERED: KETOROLAC 30 MG/ML INJ ONE (07:09)
[2024-02-16] MEDS ORDERED: ONDANSETRON 4 MG/2 ML VIAL ONE (07:09)
[2024-02-16] MEDS ORDERED: ROCURONIUM 50 MG/5 ML VIAL IV ONE ×2 (07:09→07:58)
[2024-02-16] MEDS: Gentamicin Inj 240 MG in NA CHLORIDE 0.9% 100 ML IV ONE (07:21)
[2024-02-16] MEDS: AMPICILLIN SODIUM 2 GM/VIAL VIAL ONE (07:40)
[2024-02-16] MEDS ORDERED: NEOSTIGMINE 1 MG/ML -10 ML VIAL ONE (08:44)
[2024-02-16] MEDS ORDERED: GLYCOPYRROLATE 0.2 MG/ML SYR ONE (08:44)
[2024-02-16] MEDS ORDERED: PHENAZOPYRIDINE 100MG TAB PO ONE (09:20)
--- NOTE | 2024-02-16 09:38 | P.OP ---
Date of Service: 02/16/24 Preoperative diagnoses: Left 6 to 7 mm ureterolithiasis Postoperative diagnosis: Left 6 to 7 mm ureterolithiasis displaced into kidney/nephrolithiasis Encrusted left ureteral stent Principal procedures: Cystoscopy Left ureteral stent extraction Left retrograde pyelography Left ureteroscopy with pyeloscopy Left ureteroscopic and pyeloscopic laser lithotripsy Left pyeloscopic stone basketing Left ureteral stent replacement Indication for procedure: 63-year-old gentleman with history of ureteral colic associated with a 6 mm proximal ureteral stone underwent stent placement back in August of this year. Some delay because of insurance and other financial issues was forced until he was able to return for operative management at this time. Procedure note: The patient was consented in the preoperative holding area before being transferred to the operative suite where general anesthesia was induced. He was given ampicillin 2 g and gentamicin 2 to 3 mg/kg IV antimicrobial prophylaxis with pneumoboots provided for DVT prophylaxis. He was placed in the lithotomy position, padded and secured to the table appropriately. His genitalia was prepped with Hibiclens and he was draped in standard fashion. The case was begun using a 22 Dominican rigid cystoscope to traverse the urethra and into the bladder with ease. The bladder was decompressed of fluid and urine and surveyed. The stent was noted emanating from the left ureteral orifice and was mildly encrusted on the outside. The tip of the coil of the stent was grasped, and the tip of the stent was delivered to the meatus with relative ease. I then attempted to intubate the stent to pass a sensor wire into the collecting system via the stent, but the internal lumen of the stent was encrusted. I cut off several centimeters of the stent in the process to try to pass the wire up, but this was thwarted at each step. As a result, I remove the stent with ease and then replaced the cystoscope via his urethra into his bladder. I then intubated the ureteral orifice with a 5 Dominican ureteral access catheter and performed a retrograde study. Left retrograde pyelography: Using a 70: 30 mixture of Omnipaque and saline, contrast was injected via the lumen of the 5 Dominican ureteral access catheter and did propagate up the distal into the mid and proximal ureter with some delay within the mid portion of the ureter where there was dilation before ultimately transitioning into a narrowed ureter and entering the renal pelvis and calyces. I thus passed the sensor wire via the 5 Dominican ureteral access catheter all the way into the collecting system as evidenced fluoroscopically. I then remove the 5 Dominican ureteral access catheter leaving the sensor wire as a safety wire. I then utilized a semirigid ureteroscope and pressurized saline irrigation to navigate via the urethra into his bladder and into the left ureteral orifice. I navigated up the distal into the mid ureter and used a Bentson guidewire to create a railroad track like function to enable passage of the ureteroscope into the proximal ureter where there was a degree of slight resistance. I was able to get into the proximal ureter to the level of the UPJ, but the stone was not visible likely having been displaced into the collecting system. As a result, I passed the Bentson guidewire all the way into the collecting system under direct vision and then remove the semirigid ureteroscope surveying the ureter on the way out and revealing no sign of injury. I then utilized a 11 x 13 Dominican ure teral access sheath passed over the Bentson guidewire into the mid proximal ureter until it reached a point of obstruction. I then advanced the flexible ureteroscope over the Bentson guidewire beyond the point of obstruction into the collecting system with relative ease. I then surveyed through the upper and mid pole calyces until in the lower mid pole posterior calyx, I encountered the previously observed 6 mm ureteral calculus. At this point I then utilized a 272 nm laser fiber at a power setting of 1 J and 15 Hz to begin to fragment the stone. I broke the stone into 3-4 smaller pieces, each certainly no larger than around 2 to 3 mm, and then utilized a 1.9 Dominican 0 tip nitinol basket to grasp the larger of the fragments and attempt to deliver it out of the system via the ureteral access sheath. Unfortunately, the fragment was too large for the lumen of the ureteral access sheath; so I had to utilize the laser to fragment the stone within the basket ultimately releasing the basket. The remaining stone fragments were then within the lumen of the ureteral access sheath; so I utilized the laser fiber to fragment those stone fragments into smaller fragments, about the size of the tip of the laser fiber. I then followed all the way back into the collecting system and found the remaining couple of fragments previously broken up, and continued to dust those fragments until the dust fragments were smaller than the size of the tip of the laser fiber. I increased the power to 1 J and 25 Hz and eventually 1.2 J and 25 Hz in order to accomplish this. I then surveyed back into the renal pelvis and the remaining calyces to ensure no additional fragments of any significant size were present before surveying down into the proximal ureter and removing the ureteral access sheath on the way out to surveyed the remainder of the ureter for any sign of injury. No signs of injury were noted; so ureteroscopy and laser lithotripsy was discontinued. I then backloaded the cystoscope over the indwelling safety wire and I passed under direct vision a 7 Dominican by 28 centimeter double-J ureteral stent. A coil was observed fluoroscopically in the collecting system and 1 cystoscopically formed in his bladder. The bladder was then decompressed of fluid and urine and some encrusted stent dust which was not collected. I then removed the cystoscope. He was then taken out of the lithotomy position, awakened from general anesthesia, transferred to a stretcher, and then transferred to the recovery room in good condition. Complications: None Discharge disposition: I would like for him to keep the ureteral stent for the next 2 to 3 weeks at which point we will remove it cystoscopically in the office.
--- NOTE | 2024-02-16 09:42 | RAD REPORT ---
EXAM: Fluoroscopy use, Urethrocystogrphy Retrograde HISTORY: [facility] MAIN LEFT STENT COMPARISON: None FINDINGS: A total of 16 images were sent to PACS, during a fluoroscopically guided left urethrocystog jennifer and stent placement. No radiologist was involved in protocoling or performance of the study, and no radiologist was present for the duration of the procedure. No interpretation of the saved imag es will be provided. Total fluoroscopy time: 0:15 IMPRESSION: Documentation of fluoroscopy use as above.
[2024-02-16] MEDS ORDERED: HYDROCODONE/APAP 5/325 MG TAB ONE (09:59)
[2024-02-16] MEDS: HYDROCODONE/APAP 5/325 MG TAB PO PRN (10:03)
[2024-02-16 10:56] VITALS: BP 141/84; TEMP 97.5
== END 2024-02-16 11:00 | disposition home or self-care (01) ==
LOC: OR 06:10
PROVIDERS: ATTEND Urology
PROC: 0T778DZ Dilation of Left Ureter with Intraluminal Device, Via Natural or Artificial Opening Endoscopic (ICD-10-PCS; 2024-02-16)
PROC: 0TC78ZZ Extirpation of Matter from Left Ureter, Via Natural or Artificial Opening Endoscopic (ICD-10-PCS; principal; 2024-02-16 07:30)
DX: N20.2 Calculus of kidney with calculus of ureter (principal)
CPT/HCPCS: 93005; 85025; 80048; 36415; 85610; 71046; 74450; 51610; 52356; J2704; J2710; J2003; J1580; J2250; J3010; J1100; J2405; J0290; J7030; J7120